=== PATIENT | female | born 1960 | race African-American/Black ===

== ENCOUNTER 2017-09-06 12:01 | Inpatient (IN) ==
[2017-09-06] MEDS: Sod Chloride 0.9% Inj 1,000 ML IV.SIG SCH (21:16)
[2017-09-07] MEDS ORDERED: Acetaminophen 325 MG Tablet PO PRN (00:01)
[2017-09-07] MEDS ORDERED: Sod Chloride 0.9% Inj 1,000 ML IV.SIG SCH (00:01)
[2017-09-07 08:36] LABS: Anion Gap 10 meq/L (5-15); Blood Urea Nitrogen 11 mg/dL (7-18); Calcium 8.6 mg/dL (8.5-10.1); Carbon Dioxide 27.3 meq/L (21.0-32.0); Chloride 109 meq/L (98-107); Glomerular Filtration Rate Greater Than 89 mL/min (>89); Glucose,Random 86 mg/dL (74-106); Potassium 3.6 meq/L (3.5-5.1); Sodium 146 meq/L (136-145)
[2017-09-07 08:52] VITALS: RESP 18
[2017-09-07] MEDS ORDERED: Pneumococcal-23 Polyvalent Vaccine Inj 25 MCG/0.5 ML Syringe IM ONE (10:00)
[2017-09-07] MEDS: Sod Chloride 0.9% Inj 1,000 ML IV.SIG SCH ×2 (11:06→23:40)
--- NOTE | 2017-09-07 11:54 | P.PNNEU ---
Subjective Subjective Comments: No acute events reported Active Medications: Active Medications Generic Name Dose Route Start Last Admin Trade Name Freq PRN Reason Stop Dose Admin Acetaminophen 650 mg 09/07/17 00:01 09/07/17 01:45 Tylenol PO 650 mg Q4H PRN Administration PAIN 1-10 AND/OR FEVER >101F Aspirin 325 mg 09/07/17 09:00 09/07/17 10:59 Ecotrin PO 325 mg DAILY CARYL Administration Sodium Chloride 1,000 mls @ 100 mls/hr 09/07/17 00:01 09/07/17 11:06 Ns Inj IV.SIG 100 mls/hr .Q10H CARYL Administration Metoclopramide HCl 5 mg 09/07/17 00:01 Reglan Inj IV.PUSH Q8H PRN NAUSEA OR VOMITING Allergies/Adverse Reactions: Allergies Allergy/AdvReac Type Severity Reaction Status Date / Time No Known Allergies Allergy Unverified 09/06/17 12:03 Physical Exam Vital signs: Vital Signs 09/07/17 00:00 09/07/17 04:00 09/07/17 08:51 Temperature 98.2 F 98.4 F 98.1 F Pulse Rate 96 H 94 H 93 H Respiratory Rate 18 16 18 Blood Pressure 126/60 119/78 161/71 H Pulse Oximetry 96 97 94 L Intake & Output 09/06/17 09/07/17 09/07/17 18:59 06:59 18:59 Intake Total 240 / 240 1000 / 1000 Balance 240 / 240 1000 / 1000 Weight 98.3 kg Intake: IV 1000 / 1000 NS Inj 1,000 ML @ 100 mls/hr IV 1000 / 1000 .SIG .Q10H CARYL Rx#:[id number] Oral 240 / 240 Narrative: Visual field full face is symmetric speech is entirely normal She had normal strength in upper and lower extremities bilaterally. No apparent distress. Objective Laboratory Results - last 24 hr 09/06/17 09/06/17 09/06/17 12:35 12:35 12:35 WBC 7.5 RBC 4.54 Hgb 12.1 POC Hgb 12.6 Hct 36.7 POC Hct 37.0 MCV 80.9 MCH 26.6 L MCHC 32.9 RDW 14.9 Plt Count 259 MPV 8.8 Neut % (Auto) 47.0 Lymph % (Auto) 45.8 H [place] % (Auto) 5.2 Eos % (Auto) 1.5 Baso % (Auto) 0.5 Neut # (Auto) 3.5 Lymph # (Auto) 3.4 [place] # (Auto) 0.4 Eos # (Auto) 0.1 Baso # (Auto) 0.0 CBC Comment DIFF FINAL ESR PT 10.0 INR 1.0 APTT 23.6 L Fibrinogen 419 H POC Sodium 142 Sodium POC Potassium 3.1 L Potassium POC Chloride 100 L Chloride Carbon Dioxide Anion Gap BUN POC BUN 12 Creatinine POC Creatinine 0.8 POC Glucose 138 H Random Glucose Calcium Total Creatine Kinase 348 H CK-MB (CK-2) 2.3 CK-MB (CK-2) % 0.7 Troponin I LESS THAN 0.02 L Total Protein (PEP) Total Protein Albumin Albumin/Globulin Ratio Vrxeb-7-Vvigenczo Fygzk-3-Mnhvqkpie Beta Globulins Gamma Globulins PEP Pathologist Comment Ur Collection Type Urine Color Urine Turbidity Urine pH Ur Specific [place] Urine Protein Urine Glucose (UA) Urine Ketones Urine Occult Blood Urine Nitrite Ur Reducing Substances Urine Bilirubin Urine Ictotest Urine Urobilinogen Ur Leukocyte Esterase Urine RBC Urine WBC Urine WBC Clumps Ur Squamous Epith Cells Ur Transition Epith Cell Ur Renal Epithelial Cell Calcium Carbonate Cryst Calcium Oxalate Crystal Leucine Crystals Cystine Crystals Uric Acid Crystals Triple Phos Crystals Cholesterol Crystals Tyrosine Crystals Amorphous Sediment Urine Bacteria Hyaline Casts Granular Casts Fine Granular Casts Coarse Granular Casts Waxy Casts RBC Casts WBC Casts Urine Mucus Urine Trichomonas Ur Yeast w Hyphae Urine Yeast (Budding) Urine Sperm Ur Oval Fat Bodies Micro UA Comment Urine Collection Time Urine Opiates Screen Ur Barbiturates Screen Ur Amphetamines Screen U Benzodiazepines Scrn Urine Cocaine Screen U Cannabinoids Screen 09/06/17 09/06/17 09/06/17 12:35 12:53 13:16 WBC RBC Hgb POC Hgb Hct POC Hct MCV MCH MCHC RDW Plt Count MPV Neut % (Auto) Lymph % (Auto) [place] % (Auto) Eos % (Auto) Baso % (Auto) Neut # (Auto) Lymph # (Auto) [place] # (Auto) Eos # (Auto) Baso # (Auto) CBC Comment ESR 37 H PT INR APTT Fibrinogen POC Sodium Sodium POC Potassium Potassium POC Chloride Chloride Carbon Dioxide Anion Gap BUN POC BUN Creatinine POC Creatinine POC Glucose Random Glucose Calcium Total Creatine Kinase CK-MB (CK-2) CK-MB (CK-2) % Troponin I Total Protein (PEP) Total Protein Cancelled Albumin Cancelled Albumin/Globulin Ratio Cancelled Ydisa-4-Tvkdxkiwy Cancelled Ofifz-0-Kkhtlqbkn Cancelled Beta Globulins Cancelled Gamma Globulins Cancelled PEP Pathologist Comment Cancelled Ur Collection Type Urine Color Urine Turbidity Urine pH Ur Specific [place] Urine Protein Urine Glucose (UA) Urine Ketones Urine Occult Blood Urine Nitrite Ur Reducing Substances Urine Bilirubin Urine Ictotest Urine Urobilinogen Ur Leukocyte Esterase Urine RBC Urine WBC Urine WBC Clumps Ur Squamous Epith Cells Ur Transition Epith Cell Ur Renal Epithelial Cell Calcium Carbonate Cryst Calcium Oxalate Crystal Leucine Crystals Cystine Crystals Uric Acid Crystals Triple Phos Crystals Cholesterol Crystals Tyrosine Crystals Amorphous Sediment Urine Bacteria Hyaline Casts Granular Casts Fine Granular Casts Coarse Granular Casts Waxy Casts RBC Casts WBC Casts Urine Mucus Urine Trichomonas Ur Yeast w Hyphae Urine Yeast (Budding) Urine Sperm Ur Oval Fat Bodies Micro UA Comment Urine Collection Time Urine Opiates Screen NEG Ur Barbiturates Screen NEG Ur Amphetamines Screen NEG U Benzodiazepines Scrn NEG Urine Cocaine Screen NEG U Cannabinoids Screen NEG 09/06/17 09/06/17 09/07/17 13:16 13:16 07:14 WBC RBC Hgb POC Hgb Hct POC Hct MCV MCH MCHC RDW Plt Count MPV Neut % (Auto) Lymph % (Auto) [place] % (Auto) Eos % (Auto) Baso % (Auto) Neut # (Auto) Lymph # (Auto) [place] # (Auto) Eos # (Auto) Baso # (Auto) CBC Comment ESR PT INR APTT Fibrinogen POC Sodium Sodium 146 H POC Potassium Potassium 3.6 POC Chloride Chloride 109 H Carbon Dioxide 27.3 Anion Gap 10 BUN 11 POC BUN Creatinine 0.69 POC Creatinine POC Glucose Random Glucose 86 Calcium 8.6 Total Creatine Kinase CK-MB (CK-2) CK-MB (CK-2) % Troponin I Total Protein (PEP) 6.8 Total Protein Albumin Albumin/Globulin Ratio Jvfyt-6-Gkaktifzj Csxhn-4-Jvfnbipai Beta Globulins Gamma Globulins PEP Pathologist Comment Ur Collection Type Cancelled Urine Color Cancelled Colorless Urine Turbidity Cancelled CLEAR Urine pH Cancelled 8.0 Ur Specific [place] Cancelled 1.032 Urine Protein Cancelled NEG Urine Glucose (UA) Cancelled NEG Urine Ketones Cancelled NEG Urine Occult Blood Cancelled NEG Urine Nitrite Cancelled NEG Ur Reducing Substances Cancelled Urine Bilirubin Cancelled NEG Urine Ictotest Cancelled Urine Urobilinogen Cancelled LESS THAN 2 Ur Leukocyte Esterase Cancelled NEG Urine RBC Cancelled 1 Urine WBC Cancelled LESS THAN 1 Urine WBC Clumps Cancelled Ur Squamous Epith Cells Cancelled 1 Ur Transition Epith Cell Cancelled Ur Renal Epithelial Cell Cancelled Calcium Carbonate Cryst Cancelled Calcium Oxalate Crystal Cancelled Leucine Crystals Cancelled Cystine Crystals Cancelled Uric Acid Crystals Cancelled Triple Phos Crystals Cancelled Cholesterol Crystals Cancelled Tyrosine Crystals Cancelled Amorphous Sediment Cancelled Urine Bacteria Cancelled Hyaline Casts Cancelled Granular Casts Cancelled Fine Granular Casts Cancelled Coarse Granular Casts Cancelled Waxy Casts Cancelled RBC Casts Cancelled WBC Casts Cancelled Urine Mucus Cancelled Urine Trichomonas Cancelled Ur Yeast w Hyphae Cancelled Urine Yeast (Budding) Cancelled Urine Sperm Cancelled Ur Oval Fat Bodies Cancelled Micro UA Comment Cancelled CATH-CULT NOT IND Urine Collection Time Cancelled Urine Opiates Screen Ur Barbiturates Screen Ur Amphetamines Screen U Benzodiazepines Scrn Urine Cocaine Screen U Cannabinoids Screen Review/Management - Review/Management Plan: Impression The MRI in the CTAs were all normal. His blood work so far is normal. We will check an LDL. Follow-up the echo and Holter. Check a CT for the lung mass. I note her EEG was normal. Continue an aspirin.
[2017-09-07 12:19] VITALS: O2SAT 97
[2017-09-07 14:29] LABS: Chol/HDL Ratio 4.35 Ratio
--- NOTE | 2017-09-07 15:30 | P.PN ---
Subjective Interval history: Resting comfortably in bed No event overnight Denied chest and or short of breath No fever or chills Physical Exam Vital signs: Vital Signs 09/07/17 00:00 09/07/17 04:00 09/07/17 08:51 Temperature 98.2 F 98.4 F 98.1 F Pulse Rate 96 H 94 H 93 H Respiratory Rate 18 16 18 Blood Pressure 126/60 119/78 161/71 H Pulse Oximetry 96 97 94 L 09/07/17 12:18 Temperature 97.9 F Pulse Rate 102 H Respiratory Rate 18 Blood Pressure 146/109 H Pulse Oximetry 97 Intake & Output 09/06/17 09/07/17 09/07/17 18:59 06:59 18:59 Intake Total 240 / 240 1000 / 1000 Balance 240 / 240 1000 / 1000 Weight 98.3 kg Intake: IV 1000 / 1000 NS Inj 1,000 ML @ 100 mls/hr IV 1000 / 1000 .SIG .Q10H CARYL Rx#:[id number] Oral 240 / 240 Narrative: GENERAL: This is a well-nourished, well-developed patient, in no apparent distress. CARDIOVASCULAR: RRR, no gallops, or rubs. RESPIRATORY: Fair air entry bilaterally. No W, R, or R GASTROINTESTINAL: Abdomen soft, non-tender, nondistended. Positive bowel sounds MUSCULOSKELETAL: Extremities without clubbing, cyanosis, or edema. Pedal pulses appreciated NEUROLOGICAL: Awake and alert oriented cranial nerves II through XII intact, motor strength 5 out of 5 in all extremities, sensation intact, speech is normal Results - Labs CBC & Chem 7: 09/06/17 12:35 09/07/17 07:14 Laboratory Results - last 24 hr 09/06/17 09/06/17 09/06/17 12:35 12:35 12:35 WBC 7.5 RBC 4.54 Hgb 12.1 POC Hgb 12.6 Hct 36.7 POC Hct 37.0 MCV 80.9 MCH 26.6 L MCHC 32.9 RDW 14.9 Plt Count 259 MPV 8.8 Neut % (Auto) 47.0 Lymph % (Auto) 45.8 H [place] % (Auto) 5.2 Eos % (Auto) 1.5 Baso % (Auto) 0.5 Neut # (Auto) 3.5 Lymph # (Auto) 3.4 [place] # (Auto) 0.4 Eos # (Auto) 0.1 Baso # (Auto) 0.0 CBC Comment DIFF FINAL ESR PT 10.0 INR 1.0 APTT 23.6 L Fibrinogen 419 H POC Sodium 142 Sodium POC Potassium 3.1 L Potassium POC Chloride 100 L Chloride Carbon Dioxide Anion Gap BUN POC BUN 12 Creatinine POC Creatinine 0.8 POC Glucose 138 H Random Glucose Calcium Total Creatine Kinase 348 H CK-MB (CK-2) 2.3 CK-MB (CK-2) % 0.7 Troponin I LESS THAN 0.02 L Total Protein (PEP) Total Protein Albumin Albumin/Globulin Ratio Lbtki-5-Enbwqypgg Leslu-7-Qihklvqle Beta Globulins Gamma Globulins PEP Pathologist Comment Triglycerides Cholesterol LDL Cholesterol, Calc HDL Cholesterol Cholesterol/HDL Ratio Ur Collection Type Urine Color Urine Turbidity Urine pH Ur Specific [place] Urine Protein Urine Glucose (UA) Urine Ketones Urine Occult Blood Urine Nitrite Ur Reducing Substances Urine Bilirubin Urine Ictotest Urine Urobilinogen Ur Leukocyte Esterase Urine RBC Urine WBC Urine WBC Clumps Ur Squamous Epith Cells Ur Transition Epith Cell Ur Renal Epithelial Cell Calcium Carbonate Cryst Calcium Oxalate Crystal Leucine Crystals Cystine Crystals Uric Acid Crystals Triple Phos Crystals Cholesterol Crystals Tyrosine Crystals Amorphous Sediment Urine Bacteria Hyaline Casts Granular Casts Fine Granular Casts Coarse Granular Casts Waxy Casts RBC Casts WBC Casts Urine Mucus Urine Trichomonas Ur Yeast w Hyphae Urine Yeast (Budding) Urine Sperm Ur Oval Fat Bodies Micro UA Comment Urine Collection Time Urine Opiates Screen Ur Barbiturates Screen Ur Amphetamines Screen U Benzodiazepines Scrn Urine Cocaine Screen U Cannabinoids Screen 09/06/17 09/06/17 09/06/17 12:35 12:53 13:16 WBC RBC Hgb POC Hgb Hct POC Hct MCV MCH MCHC RDW Plt Count MPV Neut % (Auto) Lymph % (Auto) [place] % (Auto) Eos % (Auto) Baso % (Auto) Neut # (Auto) Lymph # (Auto) [place] # (Auto) Eos # (Auto) Baso # (Auto) CBC Comment ESR 37 H PT INR APTT Fibrinogen POC Sodium Sodium POC Potassium Potassium POC Chloride Chloride Carbon Dioxide Anion Gap BUN POC BUN Creatinine POC Creatinine POC Glucose Random Glucose Calcium Total Creatine Kinase CK-MB (CK-2) CK-MB (CK-2) % Troponin I Total Protein (PEP) Total Protein Cancelled Albumin Cancelled Albumin/Globulin Ratio Cancelled Krfaq-5-Wenchsmbo Cancelled Sufdi-5-Zphwdaiep Cancelled Beta Globulins Cancelled Gamma Globulins Cancelled PEP Pathologist Comment Cancelled Triglycerides Cholesterol LDL Cholesterol, Calc HDL Cholesterol Cholesterol/HDL Ratio Ur Collection Type Urine Color Urine Turbidity Urine pH Ur Specific [place] Urine Protein Urine Glucose (UA) Urine Ketones Urine Occult Blood Urine Nitrite Ur Reducing Substances Urine Bilirubin Urine Ictotest Urine Urobilinogen Ur Leukocyte Esterase Urine RBC Urine WBC Urine WBC Clumps Ur Squamous Epith Cells Ur Transition Epith Cell Ur Renal Epithelial Cell Calcium Carbonate Cryst Calcium Oxalate Crystal Leucine Crystals Cystine Crystals Uric Acid Crystals Triple Phos Crystals Cholesterol Crystals Tyrosine Crystals Amorphous Sediment Urine Bacteria Hyaline Casts Granular Casts Fine Granular Casts Coarse Granular Casts Waxy Casts RBC Casts WBC Casts Urine Mucus Urine Trichomonas Ur Yeast w Hyphae Urine Yeast (Budding) Urine Sperm Ur Oval Fat Bodies Micro UA Comment Urine Collection Time Urine Opiates Screen NEG Ur Barbiturates Screen NEG Ur Amphetamines Screen NEG U Benzodiazepines Scrn NEG Urine Cocaine Screen NEG U Cannabinoids Screen NEG 09/06/17 09/06/17 09/07/17 13:16 13:16 07:14 WBC RBC Hgb POC Hgb Hct POC Hct MCV MCH MCHC RDW Plt Count MPV Neut % (Auto) Lymph % (Auto) [place] % (Auto) Eos % (Auto) Baso % (Auto) Neut # (Auto) Lymph # (Auto) [place] # (Auto) Eos # (Auto) Baso # (Auto) CBC Comment ESR PT INR APTT Fibrinogen POC Sodium Sodium 146 H POC Potassium Potassium 3.6 POC Chloride Chloride 109 H Carbon Dioxide 27.3 Anion Gap 10 BUN 11 POC BUN Creatinine 0.69 POC Creatinine POC Glucose Random Glucose 86 Calcium 8.6 Total Creatine Kinase CK-MB (CK-2) CK-MB (CK-2) % Troponin I Total Protein (PEP) 6.8 Total Protein Albumin Albumin/Globulin Ratio Auexz-5-Pswveryka Kyfys-7-Hzswuytnt Beta Globulins Gamma Globulins PEP Pathologist Comment Triglycerides Cholesterol LDL Cholesterol, Calc HDL Cholesterol Cholesterol/HDL Ratio Ur Collection Type Cancelled Urine Color Cancelled Colorless Urine Turbidity Cancelled CLEAR Urine pH Cancelled 8.0 Ur Specific [place] Cancelled 1.032 Urine Protein Cancelled NEG Urine Glucose (UA) Cancelled NEG Urine Ketones Cancelled NEG Urine Occult Blood Cancelled NEG Urine Nitrite Cancelled NEG Ur Reducing Substances Cancelled Urine Bilirubin Cancelled NEG Urine Ictotest Cancelled Urine Urobilinogen Cancelled LESS THAN 2 Ur Leukocyte Esterase Cancelled NEG Urine RBC Cancelled 1 Urine WBC Cancelled LESS THAN 1 Urine WBC Clumps Cancelled Ur Squamous Epith Cells Cancelled 1 Ur Transition Epith Cell Cancelled Ur Renal Epithelial Cell Cancelled Calcium Carbonate Cryst Cancelled Calcium Oxalate Crystal Cancelled Leucine Crystals Cancelled Cystine Crystals Cancelled Uric Acid Crystals Cancelled Triple Phos Crystals Cancelled Cholesterol Crystals Cancelled Tyrosine Crystals Cancelled Amorphous Sediment Cancelled Urine Bacteria Cancelled Hyaline Casts Cancelled Granular Casts Cancelled Fine Granular Casts Cancelled Coarse Granular Casts Cancelled Waxy Casts Cancelled RBC Casts Cancelled WBC Casts Cancelled Urine Mucus Cancelled Urine Trichomonas Cancelled Ur Yeast w Hyphae Cancelled Urine Yeast (Budding) Cancelled Urine Sperm Cancelled Ur Oval Fat Bodies Cancelled Micro UA Comment Cancelled CATH-CULT NOT IND Urine Collection Time Cancelled Urine Opiates Screen Ur Barbiturates Screen Ur Amphetamines Screen U Benzodiazepines Scrn Urine Cocaine Screen U Cannabinoids Screen 09/07/17 13:12 WBC RBC Hgb POC Hgb Hct POC Hct MCV MCH MCHC RDW Plt Count MPV Neut % (Auto) Lymph % (Auto) [place] % (Auto) Eos % (Auto) Baso % (Auto) Neut # (Auto) Lymph # (Auto) [place] # (Auto) Eos # (Auto) Baso # (Auto) CBC Comment ESR PT INR APTT Fibrinogen POC Sodium Sodium POC Potassium Potassium POC Chloride Chloride Carbon Dioxide Anion Gap BUN POC BUN Creatinine POC Creatinine POC Glucose Random Glucose Calcium Total Creatine Kinase CK-MB (CK-2) CK-MB (CK-2) % Troponin I Total Protein (PEP) Total Protein Albumin Albumin/Globulin Ratio Qyijl-0-Enyhvokdd Esvqg-9-Muzhmorqd Beta Globulins Gamma Globulins PEP Pathologist Comment Triglycerides 129 Cholesterol 196 LDL Cholesterol, Calc 125 H HDL Cholesterol 45.0 Cholesterol/HDL Ratio 4.35 Ur Collection Type Urine Color Urine Turbidity Urine pH Ur Specific [place] Urine Protein Urine Glucose (UA) Urine Ketones Urine Occult Blood Urine Nitrite Ur Reducing Substances Urine Bilirubin Urine Ictotest Urine Urobilinogen Ur Leukocyte Esterase Urine RBC Urine WBC Urine WBC Clumps Ur Squamous Epith Cells Ur Transition Epith Cell Ur Renal Epithelial Cell Calcium Carbonate Cryst Calcium Oxalate Crystal Leucine Crystals Cystine Crystals Uric Acid Crystals Triple Phos Crystals Cholesterol Crystals Tyrosine Crystals Amorphous Sediment Urine Bacteria Hyaline Casts Granular Casts Fine Granular Casts Coarse Granular Casts Waxy Casts RBC Casts WBC Casts Urine Mucus Urine Trichomonas Ur Yeast w Hyphae Urine Yeast (Budding) Urine Sperm Ur Oval Fat Bodies Micro UA Comment Urine Collection Time Urine Opiates Screen Ur Barbiturates Screen Ur Amphetamines Screen U Benzodiazepines Scrn Urine Cocaine Screen U Cannabinoids Screen - Imaging Impressions Chest CT 09/07/17 00:00 CONCLUSION: 1. 4.6 cm process in the left lung apex may be pneumonia, however neoplasm is not excluded. Treatment followed by follow-up imaging would be recommended. 2. Inflammatory appearing changes in the lung bases. Assessment and Plan - Plan 57-year-old -[place] female with a past medical history of hypertension , hyperlipidemia, anemia, and arthritis who presents to the emergency department as a stroke alert. 09/07: MRI CTA normal, EEG normal, await Holter monitor and 2D echo, CT of the chest ordered by neurology>> . 4.6 cm process in the left lung apex may be pneumonia, however neoplasm is not excluded. Treatment followed by follow-up imaging would be recommended. It will need to follow-up with a airport attendant and PET scan as an outpatient TIA/CVA -Stroke alert called, NIH scale 1. CT of brain negative, possible old left LESLIE infarct on image #18 per neurology. -Appreciate neurology follow-up recommended again tPA, further workup in progress initiating hydration and aspirin. -Neck CTA with no evidence of carotid stenosis, incidental left apical lung mass and thyroid nodule. (Patient is aware of left apical mass and has followed up with her PCP as outpatient) -Head CTA negative, brain MRI with motion degraded exam although grossly negative for acute process. -Monitor on telemetry, awaiting 2D echo, Holter monitor -Maintain head of bed flat, permissive hypertension, hold BP meds for <200/ 100 -Neuro checks, PT/OT, speech eval. Hypokalemia -Follow level and replace as needed Back pain - Tylenol PRN, UA negative DVT prophylaxis- SCD's
--- NOTE | 2017-09-08 07:57 | P.PNNEU ---
Subjective Subjective Comments: No acute events reported sr Active Medications: Active Medications Generic Name Dose Route Start Last Admin Trade Name Freq PRN Reason Stop Dose Admin Acetaminophen 650 mg 09/07/17 00:01 09/07/17 01:45 Tylenol PO 650 mg Q4H PRN Administration PAIN 1-10 AND/OR FEVER >101F Aspirin 325 mg 09/07/17 09:00 09/07/17 10:59 Ecotrin PO 325 mg DAILY CARYL Administration Sodium Chloride 1,000 mls @ 100 mls/hr 09/07/17 00:01 09/07/17 23:40 Ns Inj IV.SIG 100 mls/hr .Q10H CARYL Administration Metoclopramide HCl 5 mg 09/07/17 00:01 Reglan Inj IV.PUSH Q8H PRN NAUSEA OR VOMITING Allergies/Adverse Reactions: Allergies Allergy/AdvReac Type Severity Reaction Status Date / Time No Known Allergies Allergy Unverified 09/06/17 12:03 Physical Exam Vital signs: Vital Signs 09/07/17 08:51 09/07/17 12:18 09/07/17 16:16 Temperature 98.1 F 97.9 F 98.0 F Pulse Rate 93 H 102 H 85 Respiratory Rate 18 18 18 Blood Pressure 161/71 H 146/109 H 135/78 Pulse Oximetry 94 L 97 98 09/07/17 19:50 09/07/17 20:00 09/08/17 04:00 Temperature 97.9 F 98.2 F Pulse Rate 113 H 97 H 87 Respiratory Rate 18 20 Blood Pressure 137/74 133/70 Pulse Oximetry 98 97 Intake & Output 09/07/17 09/08/17 09/08/17 18:59 06:59 18:59 Intake Total 1000 / 1000 2430 / 2430 Balance 1000 / 1000 2430 / 2430 Intake: IV 1000 / 1000 1000 / 1000 NS Inj 1,000 ML @ 100 mls/hr IV 1000 / 1000 1000 / 1000 .SIG .Q10H CARYL Rx#:[id number] Oral 1430 / 1430 Other: # Voids 1 Narrative: awke alert nl speech no droop nl gait Objective Laboratory Results - last 24 hr 09/07/17 09/07/17 07:14 13:12 Sodium 146 H Potassium 3.6 Chloride 109 H Carbon Dioxide 27.3 Anion Gap 10 BUN 11 Creatinine 0.69 Random Glucose 86 Calcium 8.6 Total Protein (PEP) 6.8 Triglycerides 129 Cholesterol 196 LDL Cholesterol, Calc 125 H HDL Cholesterol 45.0 Cholesterol/HDL Ratio 4.35 Review/Management - Review/Management Plan: Impression The MRI in the CTAs were all normal. His blood work so far is normal. We will check an LDL. Follow-up the echo and Holter. Check a CT for the lung mass. I note her EEG was normal. Continue an aspirin. 09/08/17 ct mass vs pneumonia defer to med team ? PET o/p? echo pend and if neg could dc as long as holter done on asa and needs statin fu echo holter and hypercoag screen
--- NOTE | 2017-09-08 07:59 | MG ---
cc: Lan Fraga MD DATE: 09/07/2017. EEG NUMBER: [id number] INDICATION: Left-sided weakness, speech problems, aspirin. DESCRIPTION: Recording shows diffuse alpha and beta rhythms. Occasional diffuse theta slowing is seen. I do not see any right hemisphere or left hemisphere abnormalities. Hyperventilation is not performed. Photic stimulation is performed without significant posterior driving. IMPRESSION: Normal awake EEG. No evidence for focal or diffuse abnormality. Lan Fraga MD DJM/TL , 10:15 AM , 11:09 AM
[2017-09-08 13:51] LABS: Anti-Nuclear Antibody Screen Neg (Neg)
--- NOTE | 2017-09-08 14:57 | ECHRPT ---
Indication: cva/tia CONCLUSIONS Normal left ventricular size. Wall thickness is normal. Trivial pulmonary valve regurgitation. The left ventricular systolic function is normal with an estimated ejection fraction in the range of 60-65%. BP: / HR: Rhythm: MEASUREMENTS (Male / Female) Normal Values Technical Quality: 2D ECHO LV Diastolic Diameter PLAX 4.2 cm 4.2 - 5.9 / 3.9 - 5.3 cm LV Systolic Diameter PLAX 3.4 cm IVS Diastolic Thickness 1.3 cm 0.6 - 1.0 / 0.6 - 0.9 cm LVPW Diastolic Thickness 1.0 cm 0.6 - 1.0 / 0.6 - 0.9 cm LV Relative Wall Thickness 0.5 RV Internal Dim ED PLAX 1.7 cm LA Systolic Diameter LX 3.0 cm 3.0 - 4.0 / 2.7 - 3.8 cm M-MODE Aortic Root Diameter MM 2.4 cm AV Cusp Separation MM 1.8 cm DOPPLER Mitral E Point Velocity 63.2 cm/s Mitral A Point Velocity 83.9 cm/s Mitral E to A Ratio 0.8 LV E' Lateral Velocity 12.0 cm/s Mitral E to LV E' Lateral Ratio 5.3 TR Peak Velocity 197.0 cm/s TR Peak Gradient 15.5 mmHg FINDINGS LEFT VENTRICLE Normal left ventricular size. Wall thickness is normal. The left ventricular systolic function is normal with an estimated ejection fraction in the range of 60-65%. RIGHT VENTRICLE Normal right ventricular size and systolic function. LEFT ATRIUM The left atrial size is normal. RIGHT ATRIUM The right atrial size is normal. ATRIAL SEPTUM Normal atrial septal thickness without atrial level shunting by limited color doppler interrogation. AORTA The aortic root and proximal ascending aorta are normal in size on limited imaging. MITRAL VALVE Structurally normal mitral valve. No mitral valve stenosis or regurgitation. AORTIC VALVE Trileaflet aortic valve. No aortic valve stenosis or regurgitation. TRICUSPID VALVE Structurally normal tricuspid valve. No tricuspid valve stenosis or regurgitation. PULMONARY VALVE Trivial pulmonary valve regurgitation. VESSELS The inferior vena cava is normal in size. PERICARDIUM No pericardial effusion. Sancho Logan MD, FACC (Electronically Signed) Final Date:08 September 2017 14:56
--- NOTE | 2017-09-08 17:38 | P.DS ---
Date of admission: 09/06/17 15:12 Primary care physician: Radha Primary Care Physician Brief History from admission: 57-year-old -[place] female with a past medical history of hypertension , hyperlipidemia, anemia, and arthritis who presents to the emergency department with complaints of weakness in changes in speech. Patient who is here from [place] reports that she was with her daughter when around 10 AM felt as if she was "drunk", noticed a change in her speech and was also having trouble walking. Patient also reports nausea during episode along with a headache. She was seen and evaluated in the ER around 12:30 as a stroke alert, still within 4-1/2 TPA window. BP on presentation 185/88, pulse 75. Stat CT of the brain was negative. Patient was seen and evaluated by Dr. Fraga, NIH stroke scale 1. Recommendations for no TPA at the moment were discussed with daughter at bedside due to patient's current status and confusion. Daughter was in agreement and recommendations were made for keeping head of bed flat, hydration, CTA, MRI, and initiating aspirin. At the time of my evaluation she is awake, alert, and oriented 3. She denies any dizziness, headache, visual changes, shortness of breath, chest pain or nausea. Patient's only complaint at the moment is of back pain which she has been dealing with for the past month along with neck pain due to degenerative changes. DS: Diagnosis - Discharge Diagnosis (1) TIA (transient ischemic attack) Status: Acute (2) Old cerebrovascular accident (CVA) without late effect Status: Acute (3) Pulmonary nodule Status: Acute DS: Medications - Discharge Medications Prescriptions: aspirin 325 mg PO DAILY #30 tab atorvastatin [Lipitor] 10 mg PO DAILY #30 tab DS: Summary Hospital Course: 57-year-old -[place] female with a past medical history of hypertension , hyperlipidemia, anemia, and arthritis who presents to the emergency department as a stroke alert. 09/07: MRI CTA normal, EEG normal, await Holter monitor and 2D echo, CT of the chest ordered by neurology>> . 4.6 cm process in the left lung apex may be pneumonia, however neoplasm is not excluded. Treatment followed by follow-up imaging would be recommended. It will need to follow-up with a machine deburrer and PET scan as an outpatient 57 years old female admitted with TIA/CVA Stroke alert called, NIH scale 1. CT of brain negative, possible old left LESLIE infarct on image #18 per neurology. Stroke protocol followed and initiated neuro checks, PT/OT, speech eval. neurology consult obtained recommended again tPA, further workup in progress initiating hydration and aspirin. Neck CTA with no evidence of carotid stenosis, incidental left apical lung mass and thyroid nodule. (Patient is aware of left apical mass and has followed up with her PCP as outpatient, I also reemphasized the need to follow-up as an outpatient for possible other CT versus PET scan, she denied pulmonary consult here) Head CTA negative, brain MRI with motion degraded exam although grossly negative for acute process. Monitor on telemetry, 2D echo negative, Holter monitor to be followed by neurology. [id number] encounter performed with the patient on discharge day, as well as physical exam, summary of hospitalization course and postdischarge plan has been D/W the patient. D/W nurse D/W case management specialist. Discharge medications reviewed and printed and signed, post discharge follow up visit with PCP and other specialist as well as Brief hospital course and discharge summary has been placed. - Time Spent with Patient Total time spent providing and/or coordinating discharge services: Exam Vital signs: Vital Signs 09/07/17 19:50 09/07/17 20:00 09/08/17 04:00 Temperature 97.9 F 98.2 F Pulse Rate 113 H 97 H 87 Respiratory Rate 18 20 Blood Pressure 137/74 133/70 Pulse Oximetry 98 97 09/08/17 10:26 09/08/17 12:00 Temperature 98.1 F Pulse Rate 93 H 85 Respiratory Rate 18 Blood Pressure 136/72 Pulse Oximetry 97 Intake & Output 09/07/17 09/08/17 09/08/17 18:59 06:59 18:59 Intake Total 1000 / 1000 2430 / 2430 Balance 1000 / 1000 2430 / 2430 Intake: IV 1000 / 1000 1000 / 1000 NS Inj 1,000 ML @ 100 mls/hr IV 1000 / 1000 1000 / 1000 .SIG .Q10H CARYL Rx#:[id number] Oral 1430 / 1430 Other: # Voids 1 Results Procedures completed during hospitalization: None Labs on day of discharge: Labs from last 24 hours 09/07/17 07:14 TAMANNA Screen Neg RPR Nonreactive - Impressions ITS Impressions Chest CT 09/07/17 00:00 CONCLUSION: 1. 4.6 cm process in the left lung apex may be pneumonia, however neoplasm is not excluded. Treatment followed by follow-up imaging would be recommended. 2. Inflammatory appearing changes in the lung bases. Discharge Plan - Discharge Disposition Patient Disposition: 01 Discharge Home - Discharge Condition Condition: Fair - Discharge Order Discharge Orders: Discharge Order (Routine); Ordered 09/08/17 Ordered By: Skip Figueredo - Physicians Team Primary Care Provider: Primary Care Radha Guerrero Attending Provider: Skip Figueredo Other Providers: Lan Fraga MD - Rxs /Orders / Referrals /Forms Prescriptions: New aspirin 325 mg Tablet,Delayed Release (Dr/Ec) 325 mg PO DAILY Qty: 30 RF: 0 atorvastatin [Lipitor] 10 mg Tablet 10 mg PO DAILY Qty: 30 RF: 0 Continue Microzide 12.5 mg 1 tab DAILY mirabegron 50 mg Tablet Extended Release 24 Hr 50 mg PO DAILY potassium chloride 10 MeQ 1 tab DAILY Referrals: Lan Fraga MD [Physician] - 09/12/17 (please call to make appt. yarding engineer wasn't availiable) Primary Care Radha Guerrero [Primary Care Provider] - See Instructions (please call [facility] to make [phone])
[2017-09-09 12:41] VITALS: BP 136/72; PULSE 85; TEMP 98.1
[2017-09-11 16:35] LABS: Factor V Leiden Mutation Negative (Negative); Methylmalonic Acid 0.21 nmol/mL (<=0.40); Protein C Antigen 122 % (70-150)
[2017-09-12 13:52] LABS: Factor VIII (8) Activity 80 (50-180)
[2017-09-12 23:51] LABS: Dil Russell Viper Venom Conf ( ND (NEGATIVE); Dil Russell Viper Venom Time M ND (CORRECTED); Lupus Anticoagulant PTT Screen 40 seconds (< OR = 40)
== END 2017-09-08 15:41 | disposition home or self-care (01) ==
LOC: NEDA 15:12 → N05 20:17
PROVIDERS: ADMIT Hospitalist; ATTEND Hospitalist